=== PATIENT | male | born 1935 | race Caucasian/White ===

== ENCOUNTER 2017-09-30 09:56 | Emergency (ER) | payer MEDICARE ==
[~2017-09-30] VITALS: Ht 182.9 cm; Wt 90.0 kg
[2017-09-30 10:06] VITALS: BP 124/70; PULSE 109; RESP 18; TEMP 98.5; O2SAT 100
[2017-09-30 10:30] VITALS: O2SAT 98
[2017-09-30] MEDS ORDERED: SODIUM CHLOR 0.9% 1000 ML INJ 1,000 ML IV SCH (10:30)
[2017-09-30] MEDS ORDERED: SODIUM CHLORIDE 0.9% FLUSH 10 ML FLUSH IV FLUSH PRN (10:30)
--- NOTE | 2017-09-30 10:37 | PD ---
HPI Chief Complaint: Complaint Time Seen by Provider: 10:10 Travel History International Travel<30 days: No Contact w/Intl Traveler<30days: No Traveled to known affect area: No History of Present Illness HPI The patient is a 82-year-old male who presents to the emergency department via EMS from [place], [place], for hematuria. The patient states his noticed he had blood in his urine earlier today and called EMS. [facility] brought the patient to [facility]. The patient states he was recently at [facility] and placed on blood thinners for atrial fibrillation. He cannot recall the name of his anticoagulant. The patient states he has mild suprapubic discomfort associated with his hematuria but denies any actual dysuria. He denies any fever, chills, or sweats. He does note some mild malaise. The patient cannot recall the name of his medications and states his is on the way to the hospital with his medications. He denies any known drug allergies. Symptoms are moderate. [facility] Past Medical History Narrative Medical Atrial fibrillation, hypertension, hyperlipidemia Past Surgical History Narrative Surgical Appendectomy, CABG, right BKA Social History Alcohol Use: No Tobacco Use: No Substance Use: No Allergies-Medications (Allergen,Severity, Reaction): Coded Allergies: No Known Allergies (Unverified , 09/30/17) Reported Meds & Prescriptions Reported Meds & Active Scripts Active Reported Eliquis (Apixaban) 5 Mg Tab 5 Mg PO BID Metoprolol Tartrate 50 Mg Tab 50 Mg PO BID Pravastatin 20 Mg Tab 20 Mg PO DAILY Furosemide 40 Mg Tab 40 Mg PO DAILY Cartia Xt (Diltiazem ER 24 HR) 120 Mg Caper 180 Mg PO DAILY Zolpidem (Zolpidem Tartrate) 10 Mg Tab 10 Mg PO HS PRN Lisinopril 20 Mg Tab 20 Mg PO DAILY Levofloxacin 750 Mg Tablet 750 Mg PO DAILY Review of Systems Except as stated in HPI: all other systems reviewed are Neg General / Constitutional: No: Fever Cardiovascular: Positive: Irregular Rhythm, No: Chest Pain or Discomfort Respiratory: No: Shortness of Breath Gastrointestinal: Positive: Abdominal Pain, No: Nausea, Vomiting Genitourinary: Positive: Hematuria, No: Dysuria Musculoskeletal: Positive: Weakness Neurologic: No: Dizziness Physical Exam Narrative GENERAL: Awake, alert, pleasant 82-year-old male who appears his stated age and is in no acute respiratory distress. SKIN: Focused skin assessment warm/dry. HEAD: Atraumatic. Normocephalic. EYES: No injection or drainage. ENT: No nasal bleeding or discharge. Mucous membranes pink and moist. NECK: Trachea midline. No JVD. CARDIOVASCULAR: Irregularly irregular, heart rate 100. Well-healed sternal scar. RESPIRATORY: No accessory muscle use. Clear to auscultation. Breath sounds equal bilaterally. GASTROINTESTINAL: Abdomen soft, mild suprapubic discomfort. Well-healed scar right lower quadrant. Genitourinary: Circumcised phallus. Blood noted at the meatus. MUSCULOSKELETAL: Right BKA with prosthesis in place. NEUROLOGICAL: Awake and alert. No obvious cranial nerve deficits. Motor grossly within normal limits. Normal speech. PSYCHIATRIC: Appropriate mood and affect; insight and judgment normal. Data Data Last Documented VS Vital Signs Date Time Temp Pulse Resp B/P (MAP) Pulse Ox O2 Delivery O2 Flow Rate FiO2 09/30/17 10:06 98.5 109 18 124/70 (88) 100 Orders Orders Complete Blood Count With Diff (09/30/17 10:25) Comprehensive Metabolic Panel (09/30/17 10:25) Lipase (09/30/17 10:25) Lactic Acid (09/30/17 10:25) Urinalysis - C+S If Indicated (09/30/17 10:25) Ct Abd/Pel W/O Iv Contrast (09/30/17 10:25) Iv Access Insert/Monitor (09/30/17 10:25) Ecg Monitoring (09/30/17 10:25) Oximetry (09/30/17 10:25) Sodium Chloride 0.9% Flush (Ns Flush) (09/30/17 10:30) Electrocardiogram (09/30/17 10:25) Sodium Chlor 0.9% 1000 Ml Inj (Ns 1000 M (09/30/17 10:30) Labs Laboratory Tests Test 09/30/17 10:45 09/30/17 11:30 White Blood Count 11.7 TH/MM3 Red Blood Count 4.07 MIL/MM3 Hemoglobin 12.3 GM/DL Hematocrit 35.1 % Mean Corpuscular Volume 86.2 FL Mean Corpuscular Hemoglobin 30.1 PG Mean Corpuscular Hemoglobin Concent 35.0 % Red Cell Distribution Width 14.0 % Platelet Count 349 TH/MM3 Mean Platelet Volume 7.2 FL Neutrophils (%) (Auto) 73.8 % Lymphocytes (%) (Auto) 14.4 % Monocytes (%) (Auto) 9.0 % Eosinophils (%) (Auto) 1.8 % Basophils (%) (Auto) 1.0 % Neutrophils # (Auto) 8.6 TH/MM3 Lymphocytes # (Auto) 1.7 TH/MM3 Monocytes # (Auto) 1.1 TH/MM3 Eosinophils # (Auto) 0.2 TH/MM3 Basophils # (Auto) 0.1 TH/MM3 CBC Comment AUTO DIFF Differential Total Cells Counted 100 Neutrophils % (Manual) 73 % Band Neutrophils % 6 % Lymphocytes % 13 % Monocytes % 5 % Eosinophils % 1 % Basophils % 2 % Neutrophils # (Manual) 9.2 TH/MM3 Differential Comment FINAL DIFF MANUAL Platelet Estimate NORMAL Platelet Morphology Comment NORMAL Ovalocytes 1+ Blood Urea Nitrogen 12 MG/DL Creatinine 0.90 MG/DL Random Glucose 118 MG/DL Total Protein 6.5 GM/DL Albumin 3.0 GM/DL Calcium Level 8.9 MG/DL Alkaline Phosphatase 54 U/L Aspartate Amino Transf (AST/SGOT) 19 U/L Alanine Aminotransferase (ALT/SGPT) 25 U/L Total Bilirubin 0.7 MG/DL Sodium Level 131 MEQ/L Potassium Level 3.9 MEQ/L Chloride Level 93 MEQ/L Carbon Dioxide Level 27.2 MEQ/L Anion Gap 11 MEQ/L Estimat Glomerular Filtration Rate 81 ML/MIN Lactic Acid Level 1.3 mmol/L Lipase 80 U/L Urine Color YELLOW Urine Turbidity CLEAR Urine pH 8.0 Urine Specific [place] 1.011 Urine Protein NEG mg/dL Urine Glucose (UA) NEG mg/dL Urine Ketones TRACE mg/dL Urine Occult Blood MOD Urine Nitrite NEG Urine Bilirubin NEG Urine Urobilinogen LESS THAN 2 mg/dL Urine Leukocyte Esterase NEG Urine RBC 32 /hpf Urine WBC 2 /hpf Urine Squamous Epithelial Cells <1 /hpf Urine Mucus FEW /lpf Microscopic Urinalysis Comment CULT NOT INDICATED MDM Medical Decision Making Medical Screen Exam Complete: Yes Emergency Medical Condition: Yes Medical Record Reviewed: Yes Interpretation(s) EKG reveals atrial fibrillation with a rate of 97. Nonspecific ST-T wave changes. Inverted T waves noted in lead V3 and V4. Last Impressions Abdomen/Pelvis CT 09/30/17 1025 Signed Impressions: CONCLUSION: 1. No acute finding is identified to explain the hematuria. No renal stone, co ncerning renal lesion, or bladder lesion is identified. The prostate gland is e nlarged. 2. There is a large amount of stool within the rectum with mild rectal wall th ickening and induration of the perirectal fat. These findings may indicate infl ammation. 3. There is a moderate size right and small left pleural effusion with associa dipika compressive atelectasis at the lung bases. 4. Nonacute findings include severe atherosclerotic disease, small hiatal behzad ia, and bilateral fat-containing inguinal hernias. Laboratory Tests Test 09/30/17 10:45 09/30/17 11:30 White Blood Count 11.7 TH/MM3 Red Blood Count 4.07 MIL/MM3 Hemoglobin 12.3 GM/DL Hematocrit 35.1 % Mean Corpuscular Volume 86.2 FL Mean Corpuscular Hemoglobin 30.1 PG Mean Corpuscular Hemoglobin Concent 35.0 % Red Cell Distribution Width 14.0 % Platelet Count 349 TH/MM3 Mean Platelet Volume 7.2 FL Neutrophils (%) (Auto) 73.8 % Lymphocytes (%) (Auto) 14.4 % Monocytes (%) (Auto) 9.0 % Eosinophils (%) (Auto) 1.8 % Basophils (%) (Auto) 1.0 % Neutrophils # (Auto) 8.6 TH/MM3 Lymphocytes # (Auto) 1.7 TH/MM3 Monocytes # (Auto) 1.1 TH/MM3 Eosinophils # (Auto) 0.2 TH/MM3 Basophils # (Auto) 0.1 TH/MM3 CBC Comment AUTO DIFF Differential Total Cells Counted 100 Neutrophils % (Manual) 73 % Band Neutrophils % 6 % Lymphocytes % 13 % Monocytes % 5 % Eosinophils % 1 % Basophils % 2 % Neutrophils # (Manual) 9.2 TH/MM3 Differential Comment FINAL DIFF MANUAL Platelet Estimate NORMAL Platelet Morphology Comment NORMAL Ovalocytes 1+ Blood Urea Nitrogen 12 MG/DL Creatinine 0.90 MG/DL Random Glucose 118 MG/DL Total Protein 6.5 GM/DL Albumin 3.0 GM/DL Calcium Level 8.9 MG/DL Alkaline Phosphatase 54 U/L Aspartate Amino Transf (AST/SGOT) 19 U/L Alanine Aminotransferase (ALT/SGPT) 25 U/L Total Bilirubin 0.7 MG/DL Sodium Level 131 MEQ/L Potassium Level 3.9 MEQ/L Chloride Level 93 MEQ/L Carbon Dioxide Level 27.2 MEQ/L Anion Gap 11 MEQ/L Estimat Glomerular Filtration Rate 81 ML/MIN Lactic Acid Level 1.3 mmol/L Lipase 80 U/L Urine Color YELLOW Urine Turbidity CLEAR Urine pH 8.0 Urine Specific [place] 1.011 Urine Protein NEG mg/dL Urine Glucose (UA) NEG mg/dL Urine Ketones TRACE mg/dL Urine Occult Blood MOD Urine Nitrite NEG Urine Bilirubin NEG Urine Urobilinogen LESS THAN 2 mg/dL Urine Leukocyte Esterase NEG Urine RBC 32 /hpf Urine WBC 2 /hpf Urine Squamous Epithelial Cells <1 /hpf Urine Mucus FEW /lpf Microscopic Urinalysis Comment CULT NOT INDICATED Differential Diagnosis Differential diagnosis includes hematuria, bladder cancer, hemorrhagic cystitis , UTI, medication side effect, dehydration, nephrolithiasis, acute kidney injury. Narrative Course IV was established, labs are drawn and sent, and the patient was placed on cardiac telemetry monitoring and continuous pulse oximetry monitoring. UA was sent to lab. CBC, CMP, lactic acid were sent to lab. The patient was started on IV fluids. UA reveals 32 RBCs and blood. Hemoglobin is 12.3, white count is mildly elevated 11.7, patient is afebrile. CT of the abdomen pelvis reveals no nephrolithiasis or bladder mass, does reveal stool in the rectal vault with possible perirectal inflammation. The patient was recently discharged from [facility] after a small stroke/TIA according to the and placed on Eliquis. I believe the patient should continue the Eliquis to prevent his risk of stroke, however, did advise her if hematuria continues they need to follow-up with urology. I also advised if he is unable to urinate or has significant clots to return for Pena catheter placement. The agrees and understands. Diagnosis Primary Impression: Hematuria Qualified Codes: R31.9 - Hematuria, unspecified Referrals: Lanre Shah MD Patient Instructions: General Instructions Additional Instructions: Please provide the patient and family a copy of the CT results and lab results at discharge. Follow-up with urology if symptoms persist. Return for inability to urinate. Follow-up with a primary physician. Med/Other Pt SpecificInfo: No Change to Meds Disposition: 01 DISCHARGE HOME Condition: Stable Hector Arvizu MD Sep 30, 2017 10:37
[2017-09-30] MEDS ORDERED: LISI-515 PO (10:38)
[2017-09-30] MEDS ORDERED: APIX5TAB PO (10:38)
[2017-09-30] MEDS ORDERED: ZOLP10TA3 PO (10:38)
[2017-09-30] MEDS ORDERED: CART120C PO (10:38)
[2017-09-30] MEDS ORDERED: FURO40TA PO (10:38)
[2017-09-30] MEDS ORDERED: PRAV20TA2 PO (10:38)
[2017-09-30] MEDS ORDERED: METO50TA PO (10:38)
[2017-09-30] MEDS ORDERED: LEVO750T3 PO (10:38)
[2017-09-30 11:24] LABS: AUTOMATED NEUTROPHIL # 8.6 TH/MM3 (1.8-7.7); BASOPHIL # 0.1 TH/MM3 (0-0.2); EOSINOPHIL # 0.2 TH/MM3 (0-0.4); EOSINOPHIL % 1.8 % (0.0-4.0); HEMATOCRIT 35.1 % (39.0-51.0); HEMOGLOBIN 12.3 GM/DL (13.0-17.0); LYMPH % 14.4 % (9.0-44.0); LYMPHOCYTE # 1.7 TH/MM3 (1.0-4.8); MEAN CELL VOLUME 86.2 FL (80.0-100.0); MEAN CORPUSCULAR HEMOGLOBIN 30.1 PG (27.0-34.0); MEAN PLATELET VOLUME 7.2 FL (7.0-11.0); MONOCYTE # 1.1 TH/MM3 (0-0.9); NEUT % 73.8 % (16.0-70.0); PLATELET COUNT 349 TH/MM3 (150-450); RED BLOOD COUNT 4.07 MIL/MM3 (4.50-5.90); WHITE BLOOD COUNT 11.7 TH/MM3 (4.0-11.0)
[2017-09-30 11:37] LABS: AST (GOT) 19 U/L (15-37); BICARBONATE 27.2 MEQ/L (21.0-32.0); BLOOD UREA NITROGEN 12 MG/DL (7-18); CALCIUM 8.9 MG/DL (8.5-10.1); CHLORIDE 93 MEQ/L (98-107); GLOMERULAR FILTRATION RATE 81 ML/MIN (>89); GLUCOSE,RANDOM 118 MG/DL (74-106); SODIUM (NA) 131 MEQ/L (136-145)
[2017-09-30 11:39] LABS: ALT (GPT) 25 U/L (12-78)
[2017-09-30 11:40] LABS: ALKALINE PHOSPHATASE 54 U/L (45-117); TOTAL BILIRUBIN ADULT 0.7 MG/DL (0.2-1.0); TOTAL PROTEIN 6.5 GM/DL (6.4-8.2)
[2017-09-30 11:44] LABS: BILIRUBIN, URINE NEG (NEG); BLOOD, URINE MOD (NEG); GLUCOSE,URINE NEG (NEG); KETONE, URINE TRACE mg/dL (NEG); MUCUS URINE FEW /lpf (OCC); NITRITE,URINE NEG (NEG); SQUAMOUS EPITHELIAL CELL URINE <1 /hpf (0-5); URINE COLOR YELLOW (YELLW/STRAW); URINE LEUKOCYTE ESTERASE NEG (NEG)
--- NOTE | 2017-09-30 11:55 | RADRPT ---
EXAM DATE: 09/30/2017 11:14 AM EDT AGE/SEX: 82 years / Male INDICATIONS: Hematuria since yesterday. CLINICAL DATA: This is the patient's initial encounter. Patient reports that signs and symptoms have been present for 1 day and indicates a pain score of 3/10. MEDICAL/SURGICAL HISTORY: None. None. RADIATION DOSE: 21.92 CTDI (mGy) ; Patient body habitus COMPARISON: POI, CT UROGRAM, 02/04/2015. . TECHNIQUE: Multiple contiguous axial images were obtained through the abdomen. Images were obtained using multiple row detector helical technique. Using dose reduction techniques, radiation dose was ke pt as low as reasonably achievable to obtain optimal diagnostic quality images. FINDINGS: Lower chest: There is a moderate size right and small left pleural effusion with associated compressi ve atelectasis. There may be some component of consolidation in the right lower lobe as well. Severe coronary artery calcification is present and there are changes related to prior CABG. Hepatobiliary: Liver density is within normal limits and no focal lesion is seen on this noncontrast examination. No calcified gallstones are present. Kidneys: No hydronephrosis, stone, or mass. There is a low-density lesion in the right mid kidney stefanie suring 2.5 cm. The density measurements are consistent with a simple cyst. Adrenal Glands: There is stable mild thickening of the left adrenal gland. Right adrenal gland is nor mal. Spleen: Within normal limits. Pancreas: Within normal limits. Vascular: The aorta is nonaneurysmal. There is severe atherosclerotic disease. Bowel/Mesentery: A small hiatal hernia is present. Stomach demonstrates no abnormality otherwise. Sma ll bowel is within normal limits. No acute colon abnormality is identified. There is high density con trast material throughout the colon likely from a recent radiological procedure. Large amount of stoo l is present within the rectum. Mild sigmoid diverticulosis is present. There is no free air or free fluid. There is a mild degree of induration of the perirectal fat. Abdominal Wall: No hernia is visualized. Retroperitoneum: No lymphadenopathy. Bladder: No wall thickening or mass. Reproductive: Prostate gland is enlarged and impresses on the urinary bladder base. Inguinal: There are bilateral fat-containing hernias, left larger than right. No lymphadenopathy is seen. Musculoskeletal: No acute osseous abnormality is identified. There are degenerative changes of the abhishek mbar spine. CONCLUSION: 1. No acute finding is identified to explain the hematuria. No renal stone, concerning renal lesion, or bladder lesion is identified. The prostate gland is enlarged. 2. There is a large amount of stool within the rectum with mild rectal wall thickening and induratio n of the perirectal fat. These findings may indicate inflammation. 3. There is a moderate size right and small left pleural effusion with associated compressive atelec tasis at the lung bases. 4. Nonacute findings include severe atherosclerotic disease, small hiatal hernia, and bilateral fat- containing inguinal hernias. Electronically signed by: Manjit Cano MD 09/30/2017 11:54 AM EDT
[2017-09-30 12:04] LABS: BANDS 6 % (0-6); BASOPHILS 2 % (0-2); LYMPHOCYTES 13 % (9-44); MONOCYTES 5 % (0-8); NEUTROPHIL # MANUAL DIFF 9.2 TH/MM3 (1.8-7.7); POLYS (SEG NEUTROPHILS) 73 % (16-70)
[2017-09-30 12:05] LABS: OVALOCYTES 1+ (NORMAL)
[2017-09-30 12:38] VITALS: BP 136/81; PULSE 98; RESP 17; O2SAT 100
--- NOTE | 2017-10-01 23:19 | EKG ---
Date Performed: 09/30/2017 Time Performed: 10:44:30 PTAGE: 82 years EKG: ATRIAL FIBRILLATION ST DEVIATION AND MODERATE T-WAVE ABNORMALITY, CONSIDER ANTERIOR ISCHEMI A ABNORMAL ECG NO PREVIOUS TRACING DOCTOR: Aisha Hopkins Interpretating Date/Time 10/01/2017 23:05:32
== END 2017-09-30 12:57 | disposition home or self-care (01) ==
LOC: NEPC 09:56
DX: R31.9 Hematuria, unspecified (principal); I48.91 Unspecified atrial fibrillation; R94.31 Abnormal electrocardiogram [ECG] [EKG]; I10 Essential (primary) hypertension; E78.5 Hyperlipidemia, unspecified; Z95.1 Presence of aortocoronary bypass graft; Z79.01 Long term (current) use of anticoagulants; Z79.899 Other long term (current) drug therapy; Z86.73 Personal history of transient ischemic attack (TIA), and cerebral infarction without residual deficits
CPT/HCPCS: 74176; 80053; 81001; 83605; 83690; 85007; 85027; 93005; 99285; J7030